=== PATIENT | male | born 1945 | race Caucasian/White ===

== ENCOUNTER → 2023-09-06 08:58 | Outpatient (BNVA) | payer MEDICARE, BC, SELFPAY | PROVIDERS: PCP Family Medicine; Referring Provider Family Medicine; Visit Provider Specialist | DX: H91.93 Unspecified hearing loss, bilateral (principal); R29.90 Unspecified symptoms and signs involving the nervous system; R42 Dizziness and giddiness; R56.9 Unspecified convulsions; F03.90 Unspecified dementia, unspecified severity, without behavioral disturbance, psychotic disturbance, mood disturbance, and anxiety | CPT/HCPCS: 36415; 82607; 96116; 99204; 99205 ==

== ENCOUNTER → 2023-12-10 12:31 | Outpatient (BNVA) | payer MEDICARE, BC, SELFPAY | PROVIDERS: PCP Family Medicine; Visit Provider Specialist | DX: R29.90 Unspecified symptoms and signs involving the nervous system (principal); H81.01 Meniere's disease, right ear | CPT/HCPCS: 99214 ==